=== PATIENT | female | born 1980 | race Caucasian/White ===

== ENCOUNTER → 2018-03-18 | Emergency (ER) | payer OTHER ==
[2018-03-18 17:57] LABS: HIV (1/2) Antibody/Antigen Non-Reactive (NonReactive); HIV 1/2 INDEX 0.18 S/CO (<1.00); Hep C IgG Ab Non-Reactive (NonReactive); Hep C Index 0.14 S/CO (0-0.79)
[2018-03-18 18:37] LABS: HBSAB Concentration 6401.02 mIU/mL; Hep B Surf AB Reactive (NonReactive)
== END ==
LOC: SCSER/OP 12:32 → SCSER 12:32 → SCSER/OP 12:33 → EDSTATUS 05-01 16:16
DX: Z77.21 Contact with and (suspected) exposure to potentially hazardous body fluids (principal)
CPT/HCPCS: 36415; 86706; 86803; 87389; 99283

== ENCOUNTER 2019-09-23 19:37 | Emergency (ER) | payer OTHER ==
[2019-09-23 23:03] LABS: HBSAB Concentration 413.18 mIU/mL; HIV (1/2) Antibody/Antigen Non-Reactive (NonReactive); HIV 1/2 INDEX 0.14 S/CO (<1.00); Hep B Surf AB Reactive (NonReactive); Hep C IgG Ab Non-Reactive (NonReactive); Hep C Index 0.11 S/CO (0-0.79)
== END 2019-09-23 20:38 | disposition home or self-care (01) ==
LOC: ERS 19:37
DX: Z77.21 Contact with and (suspected) exposure to potentially hazardous body fluids (principal)
CPT/HCPCS: 86706; 86803; 87389; 99283